=== PATIENT | female | born 1995 | race Caucasian/White ===

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

== ENCOUNTER 2017-08-14 02:16 | Emergency (ER) | payer MEDICAID ==
--- NOTE | 2017-08-14 03:15 | C.PDOC ---
History Of Present Illness 21 year old female presents to the ER complaining of generalized body aches, fever, cough, and headache for 3 days. Took Tylenol, last dose was at 11pm with no relief. Denies associated chest pain or shortness of breath. PMD: Med Surg clinic Time Seen by Provider: 08/14/17 02:30 Chief Complaint (Nursing): Flu-like Symptoms History Per: Patient History/Exam Limitations: no limitations Onset/Duration Of Symptoms: Days (x3) Current Symptoms Are (Timing): Still Present Past Medical History Reviewed: Historical Data, Nursing Documentation, Vital Signs Vital Signs: Last Vital Signs Temp 101.9 F H 08/14/17 02:26 Pulse 126 H 08/14/17 02:26 Resp 20 08/14/17 02:26 BP 121/71 08/14/17 02:26 Pulse Ox 97 08/14/17 03:40 - Medical History PMH: Asthma Surgical History: No Surg Hx Family History: States: No Known Family Hx - Social History Hx Tobacco Use: No Hx Alcohol Use: No Hx Substance Use: No - Immunization History Hx Tetanus Toxoid Vaccination: No Hx Influenza Vaccination: No Hx Pneumococcal Vaccination: No Review Of Systems Except As Marked, All Systems Reviewed And Found Negative. Constitutional: Positive for: Fever, Other (body aches) Cardiovascular: Negative for: Chest Pain Respiratory: Positive for: Cough. Negative for: Shortness of Breath Neurological: Positive for: Headache Physical Exam - Physical Exam Appears: Non-toxic, No Acute Distress Skin: Normal Color, Warm, Dry Head: Atraumatic, Normacephalic Eye(s): bilateral: Normal Inspection, PERRL, EOMI Ear(s): Bilateral: Normal Oral Mucosa: Moist Throat: Normal, No Erythema Neck: Normal ROM, Supple Chest: Symmetrical Cardiovascular: Rhythm Regular Respiratory: Normal Breath Sounds, No Accessory Muscle Use, No Wheezing Gastrointestinal/Abdominal: Soft, No Tenderness, No Distention Extremity: Bilateral: Atraumatic, Normal ROM Neurological/Psych: Oriented x3, Normal Speech ED Course And Treatment O2 Sat by Pulse Oximetry: 97 (RA) Pulse Ox Interpretation: Normal Progress Note: Motrin and Tamiflu given in the ED. Ptremains stable in no acute distress. Pt will follow up with [facility] in [facility]-2 days and return precautions discussed and understood by pt Reevaluation Time: 03:51 Reassessment Condition: Improved Disposition Counseled Patient/Family Regarding: Diagnosis, Need For Followup, Rx Given - Disposition Referrals: [facility] [Outside] Disposition: HOME/ ROUTINE Disposition Time: 03:38 Condition: STABLE Additional Instructions: Increase PO fluids Take meds as directed Follow up with PMD return to ER if worse Prescriptions: Benzonatate [Tessalon Perles] 100 mg PO TID #20 sgl Ibuprofen [Motrin] 600 mg PO Q6H #24 tab Oseltamivir [Tamiflu] 75 mg PO BID #10 cap Instructions: Influenza (ED) Forms: DC Devices (Swiss) Print Language: SAMI - Clinical Impression Clinical Impression: 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 - Scribe Statement The provider has reviewed the documentation as recorded by the Scribe (Amelia Bernal) All medical record entries made by the Scribe were at my direction and personally dictated by me. I have reviewed the chart and agree that the record accurately reflects my personal performance of the history, physical exam, medical decision making, and the department course for this patient. I have also personally directed, reviewed, and agree with the discharge instructions and disposition.
[2017-08-14 03:54] VITALS: BP 120/70; PULSE 100; RESP 16; TEMP 98; O2SAT 98
== END 2017-08-14 03:54 | disposition home or self-care (01) ==
LOC: C.ER 02:16
DX: J11.1 Influenza due to unidentified influenza virus with other respiratory manifestations (principal)